=== PATIENT | female | born 1980 | race Caucasian/White ===

== ENCOUNTER → 2018-02-05 10:12 | Outpatient (CLI) | payer OTHER, SELFPAY ==
--- NOTE | 2018-02-05 | DI.US.S_ITS ---
PROCEDURE: US RENAL COMPLETE INDICATIONS: RIGHT FLANK PAIN TECHNIQUE: Real-time scanning was performed of the kidneys and bladder, with image documentation. COMPARISON: [facility], US, OB COMPLETE 14WKS OR MORE, 03/03/2010, 10:51. FINDINGS: Kidneys: Kidneys are normal in size. Right kidney measures 10.5 cm long; left kidney measures 11.1 cm long. Right renal cortical thickness is 2.0 cm; left renal cortical thickness is 1.9 cm. Renal cortical echotexture is normal. No hydronephrosis or nephrolithiasis. No suspicious solid mass lesions. Bladder: Pre-void bladder volume is 81 mL. Post-void residual is 0 mL. Pre-void images demonstrate no intraluminal masses or stones. On pre-void images, bilateral ureteral jets are noted with color Doppler interrogation. (Of note, ureteral jets may not be detectable in up to 25% of cases due to insufficient differences in specific gravity between ureteral and bladder urine). Miscellaneous: No free pelvic fluid. IMPRESSION: Normal appearance of the kidneys and no source for right flank pain identified. Dictated by: Kaden Chan [facility] Interpreted: Moses Rinaldi MD on 02/05/2018 at 10:58 Approved by: Moses Rinaldi M.D. on 02/05/2018 at 12:18
== END ==
PROVIDERS: PCP Family Medicine; Visit Provider Nurse Practitioner Family
DX: R10.9 Unspecified abdominal pain (principal)
CPT/HCPCS: 76770

== ENCOUNTER 2020-09-01 11:15 | Outpatient (RCR) | payer OTHER, MEDICAID, SELFPAY ==
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
--- NOTE | 2020-07-13 14:59 | PT.OPPOC ---
Physical, Occupational & Speech Therapy At [facility] Current Diagnoses Pain in left knee (07/13/20) Other tear of lateral meniscus, current injury, left knee, initial encounter (07/13/20) Other tear of lateral meniscus, current injury, left knee, subsequent encounter (07/13/20) Visit Care Team Role Provider Type Aba Goldberg MD Attending Provider Non-Staff Primary Care Provider Referring Provider Specialty: Family Practice Address: [facility] [address] , [address], [place], [address] Email: Plan Of Care PT-OP-T Assessment and Plan Start: 07/13/20 14:25 Freq: Status: Active Protocol: Document 07/13/20 13:45 DCW (Rec: 07/13/20 14:58 DCW [id number]) Physical Therapy Assessment Rehab Potential Rehabilitation Potential Good Evaluation Complexity Number of Personal Factors/Comorbidities 1-2 Number of Body Systems Impaired 1-2 Clinical Presentation at Evaluation Evolving Impairments Impairments Activity Tolerance,Functional Activities,Functional Mobility ,Gait,Pain,Soft Tissue Mobility Goals Two Impairment Pt unable to hike with her children due to left knee pain Retirement Goal (LTG) Pt to demonstrate ability to hike two miles without increased knee pain to show progress toward return to prior level of function LTG Duration 09/10/20 One Impairment Pt does not have an appropriate home exercise program Short Term Goal (STG) Pt to be independent and compliant with an appropriate HEP STG Duration 08/10/20 Assessment Summary Assessment Pt presents with signs and symptoms strongly suggestive of a left meniscus tear. Pt's complaints of both her knee buckling and her knee locking, as well as positive Apley, Apprehension, Bounce Home, and Geovani tests are all signs of a meniscus tear. Pt may benefit from skilled therapy focusing on maintaining ROM and strength, however pt is already at a very high level of both mobility and LE strength due to her very active life style. Pt would likely benefit from imaging to help rule in/out meniscus tear, and if ruled in, determine location and severity. Physical Therapy Plan Frequency and Duration Frequency of Treatment 2x/Week Duration of Treatment Two months Plan of Care Start Date 07/13/20 Plan of Care End Date 09/10/20 Therapeutic Interventions Therapeutic Interventions Balance Training,Home Exercise Program,Joint Mobilizations, Manual Therapy,Patient/ Caregiver Education,Self-Care/ Home Management,Taping, Therapeutic Activities, Therapeutic Exercises Modalities Cold Pack/Ice Massage,Electric Stimulation,Hot Packs, Ultrasound Next Visit Focus/Plan Next Note Type Treatment Note Next Visit Plan STM, Strengthening, Pain- control modalities, trial K- tape Plan of Care Dates Plan of Care Start Date 07/13/20 Plan of Care End Date 09/10/20 Electronically Signed by: Amarjit Hammer, PT 07/13/20 [id number] Please Sign and Return: I have reviewed this Plan of Care and certify that the skilled therapy services above are required to meet the patient?s needs. Physician Signature Date Printed Name and Credentials Clinical Instructor Signature Printed Name and Credentials
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
--- NOTE | 2020-08-05 16:25 | PT-OP ANOTE ---
Phoned the medical office of pt's PCP, Dr Goldberg, and left message regarding pt's lack of progress, and to touch base to see what more was needed for insurance auth of MRI.
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
== END 2020-12-26 09:42 | disposition home or self-care (01) ==
LOC: PHYS 11:15
PROVIDERS: PCP Family Medicine; Referring Provider Family Medicine; Visit Provider Family Medicine
DX: S83.282D Other tear of lateral meniscus, current injury, left knee, subsequent encounter (principal); S83.282A Other tear of lateral meniscus, current injury, left knee, initial encounter; M25.562 Pain in left knee
CPT/HCPCS: 97110; 97112; 97140; 97161